=== PATIENT | male | born 1975 | race Caucasian/White ===

== ENCOUNTER → 2018-05-27 | Outpatient (CLI) | payer OTHER ==
--- NOTE | 2018-05-27 12:12 | KCIC ---
EXAM: Maxillofacial bone CT without contrast. HISTORY: Sinusitis. TECHNIQUE: Computed tomographic images of the maximal facial bones were obtained without contrast. *One or more of the following individualized dose reduction techniques were utilized for this examination: 1. Automated exposure control. 2. Adjustment of the mA and/or kV according to patient size. 3. Use of iterative reconstruction technique. COMPARISON: None. FINDINGS: There is mild bilateral ethmoid and maxillary sinus mucosal thickening. There are small bilateral maxillary sinus mucous retention cysts. The ostiomeatal units are patent. There is minimal rightward nasal septal deviation. There is no sinus wall erosion or thickening. There is fairly symmetric thickening of the bilateral inferior rectus muscles, and to a lesser extent, the medial and superior rectus muscles. There is no significant proptosis. The mastoid air cells are clear. The brain is grossly unremarkable. IMPRESSION: 1. Mild ethmoid and maxillary sinus mucosal thickening with small maxillary sinus mucous retention cysts. 2. Symmetric enlarged bilateral inferior rectus muscles, and to a lesser extent, medial and superior rectus muscles. Correlate for thyroid ophthalmopathy. Electronically signed by: Sandrine Ariza MD (05/27/2018 12:08 PM) [facility]
== END | disposition home or self-care (01) ==
LOC: KCIC CT 10:53
PROVIDERS: ATTEND Otolaryngology
DX: J34.1 Cyst and mucocele of nose and nasal sinus (principal); J34.2 Deviated nasal septum; H05.821 Myopathy of extraocular muscles, right orbit; H05.822 Myopathy of extraocular muscles, left orbit
CPT/HCPCS: 70486

== ENCOUNTER → 2019-11-13 | Outpatient (CLI) | payer OTHER ==
[~2019-11-13] MED LIST: CYCL5TAB PO; IBUP-1027 PO; IOHEXOL 180 MG/ML 10 ML VIAL. ONE; LEVO175T2 PO; MAGN400T17 PO; SELE200C PO; methylPREDNISolone ACETATE 40 MG/ML VIAL. ONE; methylPREDNISolone ACETATE 80 MG/ML VIAL. ONE
--- NOTE | 2019-11-13 14:18 | PAIN ---
DATE OF SERVICE: 11/13/2019 INITIAL CONSULTATION FOR PAIN CLINIC CHIEF COMPLAINT: Low back and left greater than right lower extremity pain. HISTORY OF PRESENT ILLNESS: This is a 43-year-old male who presents with history of pain after planting trees at home on 09/25/2019. The patient reports prior to that, he did not have any significant pain in his back or anywhere else. He thought he had pulled a muscle. Pain began to get worse. He has now done some physical therapy, which he reports is helpful, but just ____ some stretching. He has tried Flexeril as well as ibuprofen, both of which do decrease the pain by about 10%-20%. The patient reports the pain is in the low back radiating to posterior gluteus, posterior thighs, mostly in the left side, again occasionally changes to the right side, but the left side is worse. The patient reports it is constant, becoming more stabbing and throbbing, changes during the day, worse with activity, standing, walking, changing positions, better with sitting or lying down, but generally does not awaken him from sleep at night, does not affect his bowel or bladder control or his ability to walk significantly, not using any assistive devices to ambulate, again fairly well controlled with some ibuprofen and Flexeril at this point, but still significantly painful in the back itself and the legs. The patient rates his disability rating from 0-10, 10 being the worst, is a 7 with family home responsibilities and recreation, 5 with social activity, 10 with occupational activities, 9 with sexual behavior, 4 with self-care and 1 with life support activities. The patient did have an MRI scan of the lumbar spine, which shows these at L5-S1 with mild lumbar spondylosis, generalized disk bulge L5-S1 eccentric towards the left, [id number] hypertrophic posterior facet degenerative change, no central stenosis, disk bulging resulting in moderate left neural foraminal narrowing. The patient reports no loss of motor function, but significant fatigability with the lower extremities, especially on the left side with ambulation and even just standing, but again better with sitting or lying down. PAST MEDICAL HISTORY: Significant for arthritis, previous thyroidectomy, cigarette smoking, quit 2 years ago. PREVIOUS SURGERY: Includes thyroidectomy, appendectomy, and fractured elbow in the past. CURRENT MEDICATIONS: Include selenium, ibuprofen, cyclobenzaprine, magnesium and Synthroid. ALLERGIES: The patient has no known drug allergies. FAMILY HISTORY: Significant for no major medical problems or conditions he is aware of. SOCIAL HISTORY: The patient does not drink alcohol, does not smoke, does not use any illegal, illicit or recreational drugs. He is , lives with his spouse, lives locally in [place], [place], and works for a local [employer] company where he is on his feet and reports some fairly physical requirements with his job as well. REVIEW OF SYSTEMS: The patient's review of systems is positive for those items mentioned in history of present illness. All systems reviewed and otherwise negative. It is complete, full and well documented on the patient's chart. PHYSICAL EXAMINATION: VITAL SIGNS: The patient's blood pressure 139/104, pulse 88, respirations 18, temperature 98.6 degrees Fahrenheit, height is 6 feet 7 inches, weight is 221 pounds. GENERAL: The patient is awake, alert, oriented, appropriate, very pleasant demeanor. HEENT: Shows normocephalic, atraumatic. Extraocular movements are intact and symmetrical. Oral cavity: Mucous membranes moist and pink. Dentition is intact. NECK: Shows anterior throat supple without palpable lymphadenopathy noted. Swallow reflex symmetrical. CHEST: Shows normal on inspection. Breath sounds are clear bilaterally. HEART: Shows S1, S2 clear. No murmurs auscultated. ABDOMEN: Soft, nontender, nondistended. No palpable organomegaly is noted. No rebound or guarding demonstrated. BACK: Shows spine grossly in the midline. Normal appearing cervical lordotic curvature, thoracic kyphotic curvature and lumbar lordotic curvature. Lumbar paraspinous muscle shows symmetrical on inspection, on palpation shows some moderate tenderness diffusely bilaterally going diffusely without significant radiation. The patient has good rotational motion of lumbar spine, both laterally as well as extension and flexion without significant difficulty. The patient's back shows lumbar spine symmetrical. No tenderness over the spinous processes, sacrum or sacroiliac regions. Paraspinous muscle shows some very mild tenderness in the middle and lower distribution of the lumbar paraspinous muscles, but only diffusely bilaterally without radiation. The patient does show good rotational motion both laterally greater than 10 degrees right and left as well as extension greater than 10 degrees, forward flexion 45 degrees without significant pain reported. EXTREMITIES: Lower extremities show deep tendon reflexes 2+ in the patellar, 1+ tendo-calcaneus tendons. Motor exam is strong with 5/5 dorsiflexion, extension, quadriceps and hamstring flexion symmetrical. Peripheral pulses are 1+ posterior tibia. No peripheral edema is noted. Lower extremities are warm and dry to touch, equal in color and appearance. Straight leg raising is noted to be negative for reproduction of radicular symptoms bilaterally as is Gaenslen's and Efra's maneuvers negative bilaterally as well. The patient is able to stand, stand on his toes without difficulty or loss of balance, walks with a normal appearing gait, does not appear to favor the right or left lower extremity significantly with ambulation, not using any assistive devices to ambulate as well. SKIN: Shows warm and dry, good turgor. No edema. No sores, rashes or bruising throughout. IMPRESSION: 1. This is a 43-year-old male with approximate month and a half history of low back pain after lifting trees at home. 2. MRI scan of lumbar spine as noted. 3. History of arthritis. PLAN: Options were discussed with the patient including conservative medical managements, physical therapies and interventional techniques. He would like to pursue interventional techniques. We discussed a lumbar epidural steroid injection using description as well as anatomical models to describe the procedure. Risks were then discussed including, but not limited to bleeding, infection, possibility of epidural hematoma, subsequent neurological compromise, dural puncture, headaches, spinal cord and/or nerve damage, side effects of steroid medication and poor results regarding pain control. The patient understands and wished to proceed. The patient will return to clinic in approximately 2 weeks for followup. He was counseled on return appointment, activity level and side effects to be aware of. DIAGNOSES: Lumbar radiculopathy with lumbar degenerative disk disease. PROCEDURE: Lumbar epidural steroid injection, translaminar approach at L5-S1 level using C-arm fluoroscopic guidance under sterile prep and drape using local anesthetic. MEDICATION INJECTED: A total of 120 mg Depo-Medrol plus 10 mL of preservative-free normal saline and 2 mL of contrast. CONDITION AT DISCHARGE: Stable. The patient tolerated the procedure well, had no complications. MARIA G JEAN MD DR: CHELY/anahi JOB#: [id number] / [id number]
== END ==
LOC: PNCL 11:52
PROVIDERS: ATTEND Anesthesiology
DX: M51.16 Intervertebral disc disorders with radiculopathy, lumbar region (principal); E89.0 Postprocedural hypothyroidism; Z87.39 Personal history of other diseases of the musculoskeletal system and connective tissue; Z87.891 Personal history of nicotine dependence
CPT/HCPCS: 62323; J1030; J1040; Q9965

== ENCOUNTER → 2019-11-27 | Outpatient (CLI) | payer OTHER ==
[~2019-11-27] MED LIST changes: -IOHEXOL 180 MG/ML 10 ML VIAL. ONE; -methylPREDNISolone ACETATE 40 MG/ML VIAL. ONE; -methylPREDNISolone ACETATE 80 MG/ML VIAL. ONE
--- NOTE | 2019-11-27 10:40 | PAIN ---
DATE OF SERVICE: 11/27/2019 PROGRESS NOTE FOR PAIN CLINIC DIAGNOSES: Lumbar radiculopathy with lumbar degenerative disk disease. HISTORY OF PRESENT ILLNESS: The patient is a 43-year-old male who returns for followup status post lumbar epidural steroid injection x 1 on 11/13/2019. The patient reports he did very well with about 60% improvement overall. The pain in low back and left lower extremity much improved. The patient reports he has been increasing his activity with greater ease and comfort, doing working activities, household activities, walking greater distances, sleeping better, it does not awaken him from sleep currently. The patient reports also he is using heat and massage therapies for his low back and legs, which has been helpful as well. The patient reports his pain is a 4 on a scale of 10 at its worst over the past week, 2 on average, 1 at its least and is a 1 today. The patient reports it is cramping, stabbing pain in the low back and some into the left leg. It is aching and sharp at times and tight, also some cramping in the left leg, but is getting better with time. The patient reports no new motor or sensory deficits, no new bowel or bladder incontinence or other complaints. PHYSICAL EXAMINATION: VITAL SIGNS: The patient's blood pressure is 131/97, pulse is 71, respirations are 18, temperature 98.2 degrees Fahrenheit, height 6 feet 7 inches, weight is 224 pounds. GENERAL: The patient is awake, alert, oriented, appropriate, very pleasant demeanor. HEENT: Exam shows normocephalic, atraumatic. Extraocular movements are intact and symmetrical. Oral cavity shows mucous membranes moist and pink. Dentition is intact. NECK: Shows anterior throat supple without palpable lymphadenopathy noted. Swallow reflex symmetrical. CHEST: Shows normal on inspection. Breath sounds are clear to auscultation bilaterally. HEART: Shows S1, S2 clear. No murmurs auscultated. ABDOMEN: Soft, nontender, nondistended. BACK: Shows spine grossly in the midline. Normal appearing thoracic kyphosis and minor flattening of lumbar lordotic curvature. Lumbar paraspinous muscle shows symmetrical on inspection, on palpation shows some moderate tenderness diffusely bilaterally, but only diffusely without significant radiation. The patient has good rotational motion of lumbar spine, both laterally as well as extension and flexion without difficulty. EXTREMITIES: Lower extremities show deep tendon reflexes are 2+ in the patellar, 1+ tendo-calcaneus tendons. Motor exam is strong with 5/5 dorsiflexion, extension, quadriceps and hamstring flexion symmetrical. Peripheral pulses are 1+ posterior tibia. No peripheral edema is noted bilaterally. Options were discussed with the patient. The patient's old chart was reviewed as his current medication regimen updated. Current review of systems updated today as well. We will hold on any further injections at this time per patient's request. He is doing quite a bit better, encouraged him to continue with stretching and strengthening exercises as well as heat and massage therapies to the low back. The patient will follow up in approximately 1 month or as necessary at this time. MARIA G JEAN MD DR: CHELY/anahi JOB#: [id number] / [id number]
== END | disposition home or self-care (01) ==
LOC: PNCL 08:41
PROVIDERS: ATTEND Anesthesiology
DX: M51.16 Intervertebral disc disorders with radiculopathy, lumbar region (principal)
CPT/HCPCS: G0463

== ENCOUNTER → 2019-12-18 | Outpatient (CLI) | payer OTHER ==
--- NOTE | 2019-12-18 09:54 | PAIN ---
DATE OF SERVICE: 12/18/2019 PROGRESS NOTE FOR PAIN CLINIC DIAGNOSIS: Lumbar radiculopathy with lumbar degenerative disk disease. HISTORY OF PRESENT ILLNESS: The patient is a 43-year-old male who returns for followup status post lumbar epidural steroid injection x 1. The patient reports he is still doing much better, about 60-70% improvement. He is very pleased with this. He is having some pain in the right side of the low back, which is intermittent in intensity, but he was concerned about it. He came in today to discuss this further. The patient reports it is worse with squatting down or bending, increased activity, walking greater distances, jogging or running. The patient reports it is generally not awakening him from sleep at night, but is in the low back, mostly with activity. The patient reports it is in the right side in the posterior hip. The patient describes it as aching and sharp, sometimes constant with activity. Today, he is feeling fairly well. The patient reports his pain is a 4 on a scale of 10 at its worst over the past week, 2 on average, 0 at its least and is a 2 today. The patient reports no new motor or sensory deficits, no new bowel or bladder incontinence or other complaints except his low back. Otherwise, he is doing quite well. He is very pleased with his progress thus far. PHYSICAL EXAMINATION: VITAL SIGNS: The patient's blood pressure is 164/110, pulse 81, respirations 16, temperature 98.6 degrees Fahrenheit, weight is 228 pounds. GENERAL: The patient is awake, alert, oriented, appropriate, very pleasant demeanor. HEENT: Head shows normocephalic, atraumatic. Extraocular movements are intact and symmetrical. Oral cavity: Mucous membranes moist and pink. Dentition is intact. NECK: Shows anterior throat is supple without palpable lymphadenopathy noted. Swallow reflex is symmetrical. CHEST: Shows normal on inspection. Breath sounds are clear. No rales, rhonchi or wheezes auscultated. ABDOMEN: Soft. HEART: Shows S1, S2 clear. BACK: Shows spine grossly in the midline. Lumbar paraspinous muscle shows symmetrical on inspection and with palpation, it shows some firm musculature, but only very mildly tender throughout the upper, middle and lower distribution of paraspinous muscles. Mild tenderness with deeper palpation over the posterior superior iliac spine on the right and over the sacroiliac joint itself, but only very mild tenderness and left side is nontender throughout. The patient has good rotational motion of lumbar spine, both laterally greater than 10 degrees right and left as well as full extension greater than 10 degrees, forward flexion 45 degrees without significant pain reported. EXTREMITIES: The patient's lower extremities show deep tendon reflexes 2+ in the patellar, 1+ tendo-calcaneus tendons. Motor exam is strong with 5/5 dorsiflexion, extension, quadriceps and hamstring flexion symmetrical. Peripheral pulses are 1+ posterior tibia. No peripheral edema is noted. The patient has a negative Gaenslen's sign on the right and left. Straight leg raise is noted to be negative as well bilaterally. Options were discussed with the patient. The patient's old chart was reviewed as his current medication regimen updated. Current review of systems is updated today as well. We will hold on further injections at this time. The patient has had some mild sacroiliitis symptoms on the right, but only very mild. We discussed using [id number] anti-inflammatory medicines and stretching and strengthening exercises. We showed him some stretches to do. He also has an inversion table, as noted that he has recently acquired into using this over the past few days, encouraged him to continue with this, maintain stretching and strengthening exercises. The patient will at this time follow up on as-needed basis. MARIA G JEAN MD DR: CHELY/anahi JOB#: [id number] / [id number]
== END | disposition home or self-care (01) ==
LOC: PNCL 08:13
PROVIDERS: ATTEND Anesthesiology
DX: M51.16 Intervertebral disc disorders with radiculopathy, lumbar region (principal)
CPT/HCPCS: G0463

== ENCOUNTER → 2020-05-29 | Outpatient (CLI) | payer OTHER ==
[~2020-05-29] MED LIST changes: +ESCITALOPRAM OXA5 MG PO; +IOHEXOL 180 MG/ML 10 ML VIAL. ONE; +methylPREDNISolone ACETATE 40 MG/ML VIAL. ONE; +methylPREDNISolone ACETATE 80 MG/ML VIAL. ONE
--- NOTE | 2020-05-29 09:20 | PDOC ---
Progress Note - Pain Clinic Date of Service: DOS: DATE: 05/29/20 TIME: 09:17 Diagnosis: Dx: Lumbar radiculopathy with lumbar degenerative disc disease History or Present Illness: HPI: 44-year-old male returns for follow-up status post lumbar epidural steroid traction x1. Patient had last injection on November 13, 2019. Patient reports about 60% improvement overall with pain still in the low back and left lower extremity. Patient reports is beginning to get slightly more noticeable in the low back and left leg with walking standing changing positions better with sitting or standing patient reports generally is not awakening from sleep at night patient ports pain in the low back rating the posterior gluteus on the left side posterior calf on the left as well as the lateral hip at times patient reports a 5 on a scale of 10 is worse over the past week for an average to its least is a 2 today. Patient was aching and sharp shooting can be constant with walking and standing. Patient reports no new motor or sensory deficits no new b owel or bladder incontinence. Physical Exam: VS: Blood pressure is 148/99 pulse 73 respirations 18 temperature 97.7 F height is 6 foot 7 inches weight is 240 pounds PE: PHYSICAL EXAMINATION: GENERAL: The patient is awake, alert, oriented, appropriate, very pleasant demeanor HEENT: Shows normocephalic, atraumatic. Extraocular movements are intact and symmetrical. Oral cavity: Mucous membranes moist and pink. NECK: Shows anterior throat supple without palpable lymphadenopathy noted. Swallow reflex symmetrical. CHEST: Shows normal on inspection. Breath sounds are clear bilaterally. HEART: Shows S1, S2 clear. No murmurs auscultated. ABDOMEN: Soft, nontender, nondistended. No palpable organomegaly is noted. BACK: Shows spine grossly in the midline. Normal-appearing cervical lordotic curvature. There is slightly increased thoracic kyphosis, some minor flattening of the lumbar lordotic curvature. Lumbar paraspinous muscles show symmetrical on inspection, on palpation shows some moderate tenderness diffusely throughout the upper, middle and lower distribution of the paraspinous muscles without specific trigger points, without radiation of pain. The patient has good rotational motion of the lumbar spine, both laterally as well as extension and flexion without significant difficulty. No tenderness over the spinous processes, sacrum or sacroiliac regions. EXTREMITIES: Lower extremities show deep tendon reflexes 2+ in the patellar and tendo calcaneus tendons. Motor exam is 5 on a scale of 5 with right dorsiflexion, extension, quadriceps and hamstring flexion and 5/5 on the left. Peripheral pulses are 1+ posterior tibial. No peripheral edema is noted bilaterally. Lower extremities are warm and dry to touch, equal in color and appearance. Straight leg raise noted to be negative bilaterally. SKIN: Shows warm and dry, good turgor. No edema. No sores, rashes or bruising throughout. Procedure: Procedure: Options discussed with the patient. Patient's old chart was reviewed his his current medication regimen updated in current review of systems updated today as well. We will proceed with a second in the series lumbar epidural steroid injection today with fluoroscopic guidance. Risks were discussed including but not limited to: Bleeding, infection, possibility of epidural hematoma and subsequent neurological compromise, dural puncture, headaches, spinal cord and/or nerve damage, side effects of steroid medication, and poor results regarding pain control. Patient understands wished to proceed. Patient return to the clinic in approximately 2 weeks for follow-up, was counseled as to return appointment activity level and side effects to be aware of. Medication Injected: Med Injected: Procedure is lumbar epidural steroid injection under local anesthetic using sterile prep and drape at the L5-S1 level using C-arm fluoroscopic guidance in both AP and lateral views medications injected is 120 mg Depo-Medrol + 10 mL preservative-free normal saline and 2 mL contrast- condition at discharge is stable patient tolerated procedure well had no complications. Condition at Discharge: Condition at Discharge: Condition at discharge stable, patient tolerated procedure well and had no complications. MARIA G JEAN MD May 29, 2020 09:20
== END | disposition home or self-care (01) ==
LOC: PNCL 08:27
PROVIDERS: ATTEND Anesthesiology
DX: M51.16 Intervertebral disc disorders with radiculopathy, lumbar region (principal); Z79.899 Other long term (current) drug therapy
CPT/HCPCS: 62323; J1030; J1040; Q9965

== ENCOUNTER → 2020-08-26 | Outpatient (CLI) | payer OTHER ==
[~2020-08-26] MED LIST changes: -IOHEXOL 180 MG/ML 10 ML VIAL. ONE; -methylPREDNISolone ACETATE 40 MG/ML VIAL. ONE; -methylPREDNISolone ACETATE 80 MG/ML VIAL. ONE
--- NOTE | 2020-08-26 09:10 | PDOC ---
Progress Note - Pain Clinic Date of Service: DOS: DATE: 08/26/20 TIME: 09:06 Diagnosis: Dx: Lumbar radiculopathy with lumbar degenerative disc disease History or Present Illness: HPI: 44-year-old male returns for follow-up status post lumbar epidural steroid injection x1 on May 29, 2020. Patient reports only about 60% improvement after the injection but pain returning in the left lower extremity posterior gluteus posterior thigh posterior calf and foot with numbness and tingling into the foot and toes on the left side. Patient reports it is an aching type stabbing pain in the back with shooting radiating pain in the left lower extremity patient reports a 7 on scale 10 is worse over the past week 5 on average 1 its least as a 5 today. Patient is recently seen his neurosurgeon who is recommending a transforaminal injection at the L5-S1 level on the left as the epidural steroid injection was not significantly long lasting more than a few weeks. Patient reports still he had about 60% improvement for the first month or so after the injection. Pain returning now more selectively into the left lower extremity and L5-S1 dermatomal distribution. Patient reports no new motor or sensory deficits no new bowel or bladder incontinence or other complaints. Patient continues to do stretching strength exercises learned from physical therapy and doing that daily by his report. Patient also walking a fair amount as much as it will allow him to some significant fatigability though with walking more than 15 to 20 minutes with the left lower extremity but no motor loss. Patient reports no new bowel or bladder incontinence or other complaints. Physical Exam: VS: Blood pressure is 143/99 pulse 64 respirations 16 temperature 98.4 F height is 6 foot 7 inches weight is 233 pounds PE: PHYSICAL EXAMINATION: GENERAL: The patient is awake, alert, oriented, appropriate, very pleasant demeanor HEENT: Shows normocephalic, atraumatic. Extraocular movements are intact and symmetrical. Oral cavity: Mucous membranes moist and pink. NECK: Shows anterior throat supple without palpable lymphadenopathy noted. Swallow reflex symmetrical. CHEST: Shows normal on inspection. Breath sounds are clear bilaterally, no rales or rhonchi. HEART: Shows S1, S2 clear. No murmurs auscultated. ABDOMEN: Soft, nontender, nondistended. No palpable organomegaly is noted. No rebound or guarding demonstrated. BACK: Shows spine grossly in the midline. Normal-appearing cervical lordotic curvature. There is slightly increased thoracic kyphosis, some minor flattening of the lumbar lordotic curvature. Lumbar paraspinous muscles show symmetrical on inspection, on palpation shows some moderate tenderness diffusely throughout the upper, middle and lower distribution of the paraspinous muscles, but without specific trigger points, without radiation of pain. The patient has good rotational motion of the lumbar spine, both laterally as well as extension and flexion without significant difficulty. EXTREMITIES: Lower extremities show deep tendon reflexes 2+ in the patellar and tendo calcaneus tendons. Motor exam is 5 on a scale of 5 with right dorsifl exion, extension, quadriceps and hamstring flexion and 5/5 on the left. Peripheral pulses are no posterior tibial. No peripheral edema is noted bilaterally. Lower extremities are warm and dry to touch, equal in color and appearance. Straight leg raise noted to be [] on the right, left side is positive at approximate 40 degrees decreased with knee flexion. SKIN: Shows warm and dry, good turgor. No edema. No sores, rashes or bruising throughout. Procedure: Procedure: Options were discussed with the patient. Patient's old chart reviewed his current medication regimen updated current review of systems updated today as well. Patient with continued clinical L5-S1 radiculopathy in the left lower extremity. We will preauthorize patient for a left-sided L5-S1 transforaminal epidural steroid injection as recommended by his neurosurgeon. Patient will continue with stretching strength exercise as well as walking daily and oral analgesics anti-inflammatories [id number] as currently. We will have patient return for a left L5-S1 transforaminal epidural steroid injection upon approval. Medication Injected: Med Injected: None Condition at Discharge: Condition at Discharge: Condition at discharge is stable. MARIA G JEAN MD Aug 26, 2020 09:10
== END | disposition home or self-care (01) ==
LOC: PNCL 08:37
PROVIDERS: ATTEND Anesthesiology
DX: M51.16 Intervertebral disc disorders with radiculopathy, lumbar region (principal); Z79.899 Other long term (current) drug therapy
CPT/HCPCS: 99212; G0463

== ENCOUNTER → 2020-09-16 | Outpatient (CLI) | payer OTHER ==
[~2020-09-16] MED LIST changes: +BUPIVACAINE MPF 0.25% 10 ML VIAL. ONE; +IOHEXOL 180 MG/ML 10 ML VIAL. ONE; +methylPREDNISolone ACETATE 40 MG/ML VIAL. ONE; +methylPREDNISolone ACETATE 80 MG/ML VIAL. ONE
--- NOTE | 2020-09-16 09:36 | PDOC ---
Progress Note - Pain Clinic Date of Service: DOS: DATE: 09/16/20 TIME: 09:33 Diagnosis: Dx: Lumbar radiculopathy with lumbar degenerative disc disease History or Present Illness: HPI: 44-year-old male returns follow-up status post lumbar epidural steroid injections x2. Patient did very well with about 60% improvement overall but his left leg is significantly improved creasing in pain with walking and standing. Patient reports still about the same with significant pain in the left leg posterior gluteus posterior thigh posterior calf on the left side mildly on the right but mostly in the left and in the low back. Patient reports his pain is a 6 on scale 10 is worse over the past week 5 on average 1 its least and is a 5 today. Patient describes as aching and tight in the low back and the left lower extremity with shooting radiating pain with weightbearing and standing. Patient reports with sitting or laying down generally is not awakening from sleep at night. Patient reports no new motor or sensory deficits no new bowel or bladder incontinence or other complaints. Physical Exam: VS: Blood pressure is 140/89 pulse 63 respirations 18 temperature 98.2 F height is 6 foot 4 inches weight is 233 pounds PE: PHYSICAL EXAMINATION: GENERAL: The patient is awake, alert, oriented, appropriate, very pleasant demeanor HEENT: Shows normocephalic, atraumatic. Extraocular movements are intact and symmetrical. Oral cavity: Mucous membranes moist and pink. Dentition is intact. NECK: Shows anterior throat supple without palpable lymphadenopathy noted. Swallow reflex symmetrical. CHEST: Shows normal on inspection. Breath sounds are clear bilaterally, no rales or rhonchi. HEART: Shows S1, S2 clear. No murmurs auscultated. ABDOMEN: Soft, nontender, nondistended, obese. No palpable organomegaly is noted. No rebound or guarding demonstrated. BACK: Shows spine grossly in the midline. Normal-appearing cervical lordotic curvature. There is slightly increased thoracic kyphosis, some minor flattening of the lumbar lordotic curvature. Lumbar paraspinous muscles show symmetrical on inspection, on palpation shows some moderate tenderness diffusely throughout the upper, middle and lower distribution of the paraspinous muscles without specific trigger points, without radiation of pain. The patient has good rotational motion of the lumbar spine, both laterally as well as extension and flexion without significant difficulty. EXTREMITIES: Lower extremities show deep tendon reflexes 2+ in the patellar and tendo calcaneus tendons. Motor exam is 5 on a scale of 5 with right dorsiflexion, extension, quadriceps and hamstring flexion and 5/5 on the left. Peripheral pulses are 1+ posterior tibial. No peripheral edema is noted bilaterally. Lower extremities are warm and dry to touch, equal in color and appearance. SKIN: Shows warm and dry, good turgor. No edema. No sores, rashes or bruising throughout. Procedure: Procedure: Options were discussed with the patient. Patient's old chart reviews his current medication regimen updated review systems updated today as well. We will proceed with a left L5-S1 transforaminal epidural injection today with fluoroscopic guidance. Risks were discussed including but not limited to: Bleeding, infection, possibility of epidural hematoma and subsequent neurological compromise, dural puncture, headaches, spinal cord and/or nerve damage, side effects of steroid medication, potential injection of vertebral artery at that level and permanent ischemic damage, and poor results regarding pain control. Patient understands and wished to proceed. Medication Injected: Med Injected: Under sterile prep and drape patient was placed in prone position using C-arm f luoroscopic guidance to identify the L5-S1 distribution oblique and slightly cephalad angled C arm. The left L5-S1 target was identified and using lidocaine for anesthetizing the skin 22-gauge Denise pencil point needle was then used to enter the skin and into the subcutaneous tissues using direct C-arm fluoroscopic guidance to guide the needle into the transforaminal aspect of the left L5-S1 vertebrae this was confirmed with lateral views showing the needle tip in the superior aspect of the paravertebral region. Aspiration was noted to be negative, -1.5 cc of contrast was then injected with good spread both medially into the epidural space as well as laterally along the nerve root without uptake and without distribution and uptake on digital subtraction. At this time, a solution containing 2 cc of 0.25% bupivacaine and 80 mg of Depo- Medrol was then injected. Needle was withdrawn and sterile bandage was applied. Patient tolerated procedure well had no immediate complications Condition at Discharge: Condition at Discharge: Condition at discharge is stable, patient alert procedure well and had no complications. MARIA G JEAN MD Sep 16, 2020 09:36
== END | disposition home or self-care (01) ==
LOC: PNCL 08:41
PROVIDERS: ATTEND Anesthesiology
DX: M51.16 Intervertebral disc disorders with radiculopathy, lumbar region (principal); Z79.899 Other long term (current) drug therapy
CPT/HCPCS: 64483; J1040; J3490; Q9965; 77002; J1030

== ENCOUNTER → 2020-12-17 | Outpatient (CLI) | payer OTHER ==
[~2020-12-17] MED LIST changes: -BUPIVACAINE MPF 0.25% 10 ML VIAL. ONE; -IOHEXOL 180 MG/ML 10 ML VIAL. ONE; -methylPREDNISolone ACETATE 40 MG/ML VIAL. ONE; -methylPREDNISolone ACETATE 80 MG/ML VIAL. ONE
--- NOTE | 2020-12-17 12:32 | PDOC ---
Progress Note - Pain Clinic Date of Service: DOS: DATE: 12/17/20 TIME: 12:27 Diagnosis: Dx: Lumbar radiculopathy with lumbar degenerative disc disease History or Present Illness: HPI: 44-year-old male returns follow-up status post lumbar epidural steroid injections and left L5-S1 transforaminal injection most recently seen September 16, 2020. Patient reports he did very well after the transforaminal injection with about 90% improvement for the first few days after that about 50% improvement overall better than his previous injections. Patient reports the pain is returning now after he did some increased activity he has been jogging and this seems to exacerbate the pain to some extent. Patient did see his neurosurgeon and they are considering alternative options as well if his pain is not improved. Patient reports pain the low back left lower extremity posterior gluteus posterior thigh posterior calf some on the right thigh as well but mostly on the left side patient reports a 6 on scale 10 is worse over the past week for an average to its least and is a 4 today patient reports no new motor or sensory deficits no new bowel or bladder incontinence or other complaints. Patient reports he is sleeping better at night occasionally wakes him sleep but not every more than once every 6 hours. Physical Exam: VS: Blood pressure is 146/102 pulse 63 respirations 16 temperature 90.2 F height is 6 foot 7 inches weight is 218 pounds PE: PHYSICAL EXAMINATION: GENERAL: The patient is awake, alert, oriented, appropriate, very pleasant in demeanor HEENT: Shows normocephalic, atraumatic. Extraocular movements are intact and symmetrical. Full steele and mustache NECK: Shows anterior throat supple without palpable lymphadenopathy noted. Swa llow reflex symmetrical. CHEST: Shows normal on inspection. Breath sounds are clear bilaterally. HEART: Shows S1, S2 clear. No murmurs auscultated. ABDOMEN: Soft, nontender, nondistended. BACK: Shows spine grossly in the midline. Normal-appearing cervical lordotic curvature. There is slightly increased thoracic kyphosis, some minor flattening of the lumbar lordotic curvature. Lumbar paraspinous muscles show symmetrical on inspection, on palpation shows some moderate tenderness diffusely throughout the upper, middle and lower distribution of the paraspinous muscles, but without specific trigger points, without radiation of pain. The patient has good rotational motion of the lumbar spine, both laterally as well as extension and flexion without significant difficulty. No tenderness over the spinous processes, sacrum or sacroiliac regions. EXTREMITIES: Lower extremities show deep tendon reflexes 2+ in the patellar and tendo calcaneus tendons. Motor exam is 5 on a scale of 5 with right dorsiflexion, extension, quadriceps and hamstring flexion and 5/5 on the left. Peripheral pulses are 1+ posterior tibial. No peripheral edema is noted bilaterally. Lower extremities are warm and dry. SKIN: Shows warm and dry, good turgor. No edema. No sores, rashes or bruising throughout. Procedure: Procedure: Options discussed with patient. Patient chart reviews her current medication regimen updated current review of systems updated today as well. We will proceed with a left L5-S1 transforaminal epidural steroid injection today with fluoroscopic guidance. Risks were discussed including but not limited to: Ble eding, infection, possibility of epidural hematoma and subsequent neurological compromise, dural puncture, headaches, spinal cord and/or nerve damage, potential injection of the vertebral artery at that level with permanent ischemic damage, side effects of steroid medication, and poor results regarding pain control. Patient understands and wished to proceed. Patient return to [facility] in approximately 4 weeks for follow-up, was counseled as return appointment activity level and side effects beware. Medication Injected: Med Injected: Under sterile prep and drape patient was placed in prone position using C-arm fluoroscopic guidance to identify the L5-S1 distribution oblique and slightly cephalad angled C arm. The left L5-S1 target was identified and using lidocaine for anesthetizing the skin 22-gauge Denise pencil point needle was then used to enter the skin and into the subcutaneous tissues using direct C-arm fluoroscopic guidance to guide the needle into the transforaminal aspect of the left L5-S1 vertebrae this was confirmed with lateral views showing the needle tip in the superior aspect of the paravertebral region. Aspiration was noted to be negative, -1.5 cc of contrast was then injected with good spread both medially into the epidural space as well as laterally along the nerve root without uptake and without distribution and uptake on digital subtraction. At this time, a solution containing 2 cc of 0.25% bupivacaine and 80 mg of Depo- Medrol was then injected. Needle was withdrawn and sterile bandage was applied. Patient tolerated procedure well had no immediate complications Condition at Discharge: Condition at Discharge: Condition at discharge stable, patient alert the procedure well and had no complications. MARIA G JEAN MD Dec 17, 2020 12:32
--- NOTE | 2020-12-17 12:33 | PDOC4 ---
PROCEDURE Procedure Patient was consented for left L5-S1 transforaminal lumbar epidural steroid injection. Risks were discussed including but not limited to: Bleeding, infection, possibility of epidural hematoma and subsequent neurological compromise, dural puncture, headaches, spinal cord and/or nerve damage, potential injection into the vertebral artery at that level and permanent ischemic damage, side effects of steroid medication, and poor results regarding pain control. Patient understands and wished to proceed. Under sterile prep and drape patient was placed in prone position using C-arm fluoroscopic guidance to identify the L5-S1 distribution oblique and slightly cephalad angled C arm. The left L5-S1 target was identified and using lidocaine for anesthetizing the skin 22-gauge Denise pencil point needle was then used to enter the skin and into the subcutaneous tissues using direct C-arm fluoroscopic guidance to guide the needle into the transforaminal aspect of the left L5-S1 vertebrae this was confirmed with lateral views showing the needle tip in the superior aspect of the paravertebral region. Aspiration was noted to be negative, -1.5 cc of contrast was then injected with good spread both medially into the epidural space as well as laterally along the nerve root without uptake and without distribution and uptake on digital subtraction. At this time, a solution containing 2 cc of 0.25% bupivacaine and 80 mg of Depo- Medrol was then injected. Needle was withdrawn and sterile bandage was applied. Patient tolerated procedure well had no immediate complications MARIA G JEAN MD Dec 17, 2020 12:33
== END | disposition home or self-care (01) ==
LOC: PNCL 11:03
PROVIDERS: ATTEND Anesthesiology
DX: M51.16 Intervertebral disc disorders with radiculopathy, lumbar region (principal); Z79.899 Other long term (current) drug therapy
CPT/HCPCS: 64483